=== PATIENT | male | born 1985 | race Caucasian/White ===

== ENCOUNTER 2020-11-02 16:19 | Emergency (ER) | payer OTHER ==
[~2020-11-02] VITALS: Ht 175.3 cm; Wt 108.9 kg
[2020-11-02 17:04] LABS: BASOPHILS 0.7 % (0.0-2.0); EOSINOPHILS 0.1 % (0.0-3.0); HEMOGLOBIN 17.1 gm/dL (14.0-18.0); LYMPHOCYTES 8.9 % (24.0-44.0); MCH 29.9 pg (26.0-34.0); MCHC 33.5 g/dL (28.0-37.0); MONOCYTES 5.5 % (1.0-8.0); PLATELET COUNT 218 thou/uL (150-400); POLYS 84.8 % (36.0-66.0); RBC 5.73 mil/uL (4.50-6.00); RDW 13.9 % (10.5-14.5); WBC 10.6 thou/uL (4.0-11.0)
[2020-11-02 17:07] LABS: CALCIUM 10.5 mg/dL (8.5-10.1); CREATININE 1.5 mg/dL (0.7-1.3); POTASSIUM 3.9 mmol/L (3.5-5.1)
[2020-11-02 17:14] LABS: ALBUMIN 4.2 g/dL (3.4-5.0); TOTAL BILIRUBIN 1.2 mg/dL (0.2-1.0)
[2020-11-02] MEDS ORDERED: BRINTELLIX20 MG PO (17:15)
[2020-11-02] MEDS ORDERED: NEURONTIN 400400 M1 PO (17:17)
[2020-11-02] MEDS ORDERED: SEROQUEL XR 30300 M1 PO (17:17)
[2020-11-02] MEDS ORDERED: PROPRANOLOL 1010 M1 PO (17:17)
[2020-11-02 19:42] LABS: URINE BILIRUBIN NEGATIVE (Negative); URINE BLOOD NEGATIVE (Negative); URINE CLARITY CLEAR; URINE COLOR YELLOW; URINE GLUCOSE-RANDOM* NEGATIVE (Negative); URINE KETONES 1+ (Negative); URINE LEUKOCYTES-REFLEX NEGATIVE (Negative); URINE NITRITE-REFLEX NEGATIVE (Negative); URINE PROTEIN (DIPSTICK) TRACE (Negative); URINE UROBILINOGEN 0.2 E.U./dl (0.2-1.0)
[2020-11-02] MEDS ORDERED: IMODIUM A-D2 M1 PO (20:35)
[2020-11-02] MEDS ORDERED: ZOFRAN ODT4 MG PO (20:35)
[2020-11-02] MEDS ORDERED: BENTYL 10 MG CA10 M1 PO (20:35)
[2020-11-02 21:19] VITALS: BP 130/68
== END 2020-11-02 21:20 | disposition home or self-care (01) ==
LOC: ER 16:19
PROVIDERS: Emergency Medicine
DX: R10.84 Generalized abdominal pain (principal); E86.0 Dehydration; R11.2 Nausea with vomiting, unspecified; R05 Cough; R74.01 Elevation of levels of liver transaminase levels; F25.9 Schizoaffective disorder, unspecified; F32.9 Major depressive disorder, single episode, unspecified; F41.9 Anxiety disorder, unspecified; F17.210 Nicotine dependence, cigarettes, uncomplicated; Z79.899 Other long term (current) drug therapy; Z88.8 Allergy status to other drugs, medicaments and biological substances; Z20.828 Contact with and (suspected) exposure to other viral communicable diseases